=== PATIENT | male | born 1945 | race Caucasian/White ===

== ENCOUNTER 2019-11-28 08:31 | Day surgery (SDC) | payer MEDICARE, OTHER, SELFPAY ==
[2019-11-27 12:45] VITALS: BMI 28.6
--- NOTE | 2019-11-28 08:44 | ANES.PREANES ---
Pre-Anesthetic Assessment Pre-Anesthetic Assessment: Height/Weight: Height 1.7 m Weight 83.007 kg Proposed Procedure: Operation Date: 11/28/19 10:00 Proposed Procedures p Colonoscopy(Not Applicable) - Christiano Palomino MD Social: Social History: Tobacco, No alcohol and No tobacco Exam: Pre-Anes Outpt Exam: alert, oriented x 3, clear to auscultation bilaterally and regular rate & rhythm Airway: Submandibular: WNL Cervical ROM: WNL MP: 3 History/ROS: No significant history except as noted Pulmonary: Pulmonary: None reported CV/HEM: CV/HEM: HTN : : None reported Hepatic: Hepatic: None reported GI: GI: GERD (not well controlled) Metabolic: Metabolic: Hyperlipidemia Musc/skel: Musc/skel: None reported Neuropsych: Neuropsych: Anxiety and Depression Anesthetic Plan: ASA status: III Anesthesia: Anesthesia Evaluation and MAC Risk of > 500 ml blood loss (7ml/kg in children): No PFSH Anesthesia PFSH: Medical History Anxiety (Acute) Depression (Acute) Gastroesophageal reflux (Acute) Hypertension (Acute) Surgical History History of cholecystectomy (Acute) Hx of inguinal hernia repair (Acute) Hx of lithotripsy (Acute) Data Anesthesia Cardiac Studies: No Data to Display
[2019-11-28 09:59] VITALS: BP 129/71; PULSE 66; RESP 18; TEMP 36.5; O2SAT 96
[2019-11-28] MEDS: sodium chloride 0.9% 1,000 ML 30 ML (10:04)
--- NOTE | 2019-11-28 10:20 | PM.HPUD ---
H&P update H&P Update: DATE OF SURGERY/PROCEDURE: 11/28/19 DATE H&P PERFORMED: 11/12/19 H&P UPDATE INFORMATION: H&P completed within last 30 days and No changes to prior documentation PLANNED PROCEDURE: Operation Date: 11/28/19 10:00 Proposed Procedures p Colonoscopy(Not Applicable) - Christiano Palomino MD Full H&P Perinent History: Medical/Surgical History: Medical History (Updated 11/28/19 @ 08:44 by Naif Johnson MD) Anxiety (Acute) Depression (Acute) Gastroesophageal reflux (Acute) Hypertension (Acute)
[2019-11-28 10:40] VITALS: BP 93/64; PULSE 62; RESP 18; TEMP 36.8; O2SAT 94
[2019-11-28 10:50] VITALS: BP 115/74; PULSE 61; RESP 18; O2SAT 94
== END 2019-11-28 11:15 | disposition home or self-care (01) ==
PROVIDERS: PCP Physician Assistant; Visit Provider Surgery
PROC: 0DJD8ZZ Inspection of Lower Intestinal Tract, Via Natural or Artificial Opening Endoscopic (ICD-10-PCS; CPT 45378; principal; 2019-11-28 10:00)
DX: Z12.11 Encounter for screening for malignant neoplasm of colon (principal); Z80.0 Family history of malignant neoplasm of digestive organs; K57.30 Diverticulosis of large intestine without perforation or abscess without bleeding; K64.8 Other hemorrhoids; F41.9 Anxiety disorder, unspecified; F32.9 Major depressive disorder, single episode, unspecified; K21.9 Gastro-esophageal reflux disease without esophagitis; I10 Essential (primary) hypertension; E78.5 Hyperlipidemia, unspecified; Z82.49 Family history of ischemic heart disease and other diseases of the circulatory system; F17.210 Nicotine dependence, cigarettes, uncomplicated
CPT/HCPCS: 12345; 45378; J2704; J7030

== ENCOUNTER → 2020-09-16 13:56 | Outpatient (BNVA) | payer MEDICARE, OTHER, SELFPAY | PROVIDERS: PCP Physician Assistant; Visit Provider Urology | DX: R97.20 Elevated prostate specific antigen [PSA] (principal); Z80.42 Family history of malignant neoplasm of prostate; N20.9 Urinary calculus, unspecified | CPT/HCPCS: 81003; 84153 ==

== ENCOUNTER → 2021-09-14 14:25 | Outpatient (BNVA) | payer MEDICARE, OTHER, SELFPAY | PROVIDERS: PCP Physician Assistant; Visit Provider Urology | DX: N20.9 Urinary calculus, unspecified (principal); R97.20 Elevated prostate specific antigen [PSA] | CPT/HCPCS: 81003; 84153 ==

== ENCOUNTER 2022-09-14 11:41 | Outpatient (CLI) | payer MEDICARE, OTHER, SELFPAY ==
[2022-09-14 12:50] LABS: Prostate Specific AG Urology 5.03 ng/mL (0-4)
== END 2022-09-14 11:42 | disposition home or self-care (01) ==
LOC: LAB 11:46
PROVIDERS: PCP Physician Assistant; Visit Provider Urology
DX: R97.20 Elevated prostate specific antigen [PSA] (principal)
CPT/HCPCS: 36415; 84153

== ENCOUNTER → 2022-09-15 09:14 | Outpatient (BNVA) | payer MEDICARE, OTHER, SELFPAY | PROVIDERS: PCP Physician Assistant; Visit Provider Urology | DX: R97.20 Elevated prostate specific antigen [PSA] (principal); N20.9 Urinary calculus, unspecified; Z80.42 Family history of malignant neoplasm of prostate | CPT/HCPCS: 81003; 99213 ==